=== PATIENT | male | born 1990 | race Caucasian/White ===

== ENCOUNTER 2018-10-19 19:43 | Emergency (ER) | payer BC, OTHER ==
[2018-10-19 20:13] VITALS: O2SAT 98
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
[2018-10-20 01:47] VITALS: BP 122/83; TEMP 99.1
== END 2018-10-19 23:30 | disposition home or self-care (01) ==
LOC: ER 19:43
DX: S06.0X0A Concussion without loss of consciousness, initial encounter (principal); S00.91XA Abrasion of unspecified part of head, initial encounter; Z87.891 Personal history of nicotine dependence; Y92.410 Unspecified street and highway as the place of occurrence of the external cause; V49.88XA Car occupant (driver) (passenger) injured in other specified transport accidents, initial encounter; Z88.0 Allergy status to penicillin